=== PATIENT | male | born 1990 | race Caucasian/White ===

== ENCOUNTER 2020-06-20 12:02 | Emergency (ER) | payer SELFPAY ==
[~2020-06-20] VITALS: Ht 172.7 cm; Wt 77.1 kg
--- NOTE | 2020-06-20 12:02 | NUR ---
Patient BIBA ALS, transferred to bed 2. RN evaluating patient at bedside.
[2020-06-20 12:12] VITALS: BP 110/77
--- NOTE | 2020-06-20 12:12 | NUR ---
30 Y/O M BIBA FROM HOME C/C EVALUATION PER FAMILY REQUEST AFTER TAKING 2 PILLS OF NORCO THIS MORNING. PER EMS PT WITH HX OF TAKING NORCO IN THE PAST DUE TO SI. PT PRESENTS A/OX4, SLURRED SPEECH, LETHARGIC, BRADYPNIC 8RR, 90%RA, TACHYPNIC, PUPILS PINPOINT. PER PT TOOK ONLY 2 NORCO FOR PAIN THIS MORNING, DENIES SI. PT NKA. HX CHRONIC BACK PAIN,ANXIETY. RX ATIVAN,NORCO. NO NVD. SIDE RAIL X1.
[2020-06-20] MEDS ORDERED: NACL 0.9% 1,000 ML IV ONE (12:30)
[2020-06-20] MEDS ORDERED: NALOXONE 0.4 MG/ML VIAL IVP ONE (12:30)
--- NOTE | 2020-06-20 12:34 | NUR ---
LAB AT BEDSIDE
--- NOTE | 2020-06-20 12:52 | NUR ---
SITTING UPRIGHT IN [facility]--C/O LOWER BACK PAIN 2 TO INJURY AT WORK PT ADMITS TAKING PRESCRIBED NORCO BUT STILL PAIN REMAINS---ENCOURAGED PT TO SEEK PAIN RELIEVING ALTERNATIVES
--- NOTE | 2020-06-20 13:10 | NUR ---
MOTHER RONALD PHONE NUMBER [phone]
--- NOTE | 2020-06-20 13:14 | NUR ---
PT REFUSING TO GIVE URINE FOR URINALYSIS, ERMD AWARE.
[2020-06-20 13:34] LABS: BASOPHILS # (AUTO) 0.1 K/uL (0.00-0.22); BASOPHILS % (AUTO) 0.7 % (0.0-2.0); EOSINOPHILS # (AUTO) 0.4 K/uL (0-0.4); EOSINOPHILS % (AUTO) 5.3 % (0.0-4.0); HEMATOCRIT 48.5 % (36-52); HEMOGLOBIN 16.7 g/dL (12.0-18.0); LYMPHOCYTES % (AUTO) 35.8 % (20.5-51.1); MEAN CORPUSCULAR HEMOGLOBIN 32 pg (27-31); MEAN CORPUSCULAR HGB CONC 34 g/dL (33-37); MEAN CORPUSCULAR VOLUME 92.4 fL (80-94); MONOCYTES # (AUTO) 0.9 K/uL (0.8-1.0); MONOCYTES % (AUTO) 10.6 % (1.7-9.3); NEUTROPHILS % (AUTO) 47.6 % (42.2-75.2); PLATELET COUNT (AUTO) 258 K/uL (140-450); RED BLOOD CELL COUNT(AUTO) 5.26 MIL/uL (4.20-6.10); RED CELL DISTRIBUTION WIDTH 13.3 % (11.6-13.7); WHITE BLOOD COUNT (AUTO) 8.4 K/uL (4.8-10.8)
[2020-06-20 13:38] VITALS: BP 110/77
--- NOTE | 2020-06-20 13:39 | NUR ---
Patient discharged with v/s stable. Written and verbal after care instructions given and explained. Patient verbalized understanding. Ambulatory with steady gait. All questions addressed prior to discharge. Advised to follow up with PMD.
[2020-06-20 13:46] LABS: ALBUMIN 4.5 g/dL (3.4-5.0); ANION GAP 14.5 (8-16); ASPARTATE AMINOTRANSFERASE 68 U/L (15-37); CARBON DIOXIDE 28.7 mmol/L (21-32); CHLORIDE 100 mmol/L (98-107); CREATININE 1.4 mg/dL (0.6-1.3); GFR ARICAN-AMERICAN 77 mL/min (>90); GLUCOSE 133 mg/dL (74-106); POTASSIUM 3.2 mmol/L (3.5-5.1); SODIUM SERUM 140 mmol/L (136-145); TOTAL BILIRUBIN 0.9 mg/dL (0.0-1.0); UREA NITROGEN, BLOOD 11 mg/dL (7-18)
[2020-06-20 13:48] LABS: ACETAMINOPHEN < 0.5 ug/ml (10-30); SALICYLATE < 2.8 mg/dL (2.8-20.0)
== END 2020-06-20 13:39 | disposition home or self-care (01) ==
LOC: MED 12:02
DX: R00.0 Tachycardia, unspecified (principal); F41.9 Anxiety disorder, unspecified; G89.29 Other chronic pain; G47.30 Sleep apnea, unspecified; Z02.89 Encounter for other administrative examinations
CPT/HCPCS: 36415; 80053; 85025; 93005; 96360; 99284; G0480; G0482; J7030; J2310